=== PATIENT | female | born 1935 | race Caucasian/White ===

== ENCOUNTER → 2017-01-25 | Outpatient (CLI) | payer MEDICARE ==
[~2017-01-25] MED LIST: ACETAMINOPHEN-H1 TA2 PO; ASPI-COR81 M1 PO; ASPIRIN81 M1 PO; FOSAMAX70 MG PO; LISINOPRIL5 MG PO; LOPRESSOR50 M1 PO; LOPRESSOR50 MG PO; NEURONTIN100 MG PO; PRINIVIL5 MG PO; SIMVASTATIN10 MG PO; TRAMADOL HCL50 MG PO; ULTRAM50 MG PO; VICO10300 PO; VICODIN 5/500 505 MG PO; ZOCOR10 MG PO
== END | disposition home or self-care (01) ==
LOC: RAD 09:34
DX: J43.9 Emphysema, unspecified (principal); I10 Essential (primary) hypertension